=== PATIENT | female | born 1990 | race Caucasian/White ===

== ENCOUNTER 2018-08-26 18:12 | Emergency (ER) | payer SELFPAY ==
--- NOTE | 2018-08-26 18:24 | EDM.PDOC ---
ED HPI GENERAL MEDICAL PROBLEM - General Chief Complaint: ENT Problem Stated Complaint: PT HAS SORE THROAT Time Seen by Provider: 08/26/18 18:19 Source of Information: Reports: Patient History Limitations: Reports: No Limitations - History of Present Illness INITIAL COMMENTS - FREE TEXT/NARRATIVE: HISTORY AND PHYSICAL: History of present illness: Patient is a 28-year-old female who presents today for sore throat which started on . Patient states that she seen in the clinic yesterday and put on Clindamycin for strep throat, has taken 5 doses so far. Reports her symptoms have gotten worse since last night and states she is unable to eat but able to drink water throughout the day. She states that she's been having fevers at home 102F she has been taking Tylenol for her fever. Patient also reports a generalized headache. Patient denies any change in vision, syncope or near syncope. Denies any chest pain, back pain, shortness of breath or cough. Denies any abdominal pain, nausea, vomiting, diarrhea, constipation or dysuria. Has not noted any blood in urine or stool. Review of systems: As per history of present illness and below otherwise all systems reviewed and negative. Past medical history: As per history of present illness and as reviewed below otherwise noncontributory. Surgical history: As per history of present illness and as reviewed below otherwise noncontributory. Social history: See social history for further information Family history: As per history of present illness and as reviewed below otherwise noncontributory. Physical exam: General: Well-developed and well nourished 28-year-old female. Alert and oriented. Nontoxic appearing and in no acute distress. HEENT: Atraumatic, normocephalic, pupils equal and reactive bilaterally, negative for conjunctival pallor or scleral icterus, mucous membranes moist, TMs normal bilaterally, bilateral tonsils are erythematous with exudate, no drainage noted. Right tonsil is +4 swelling. The left tonsil is +2. Uvula midline. Neck supple, nontender, trachea midline. No drooling or trismus noted. No meningeal signs. No hot potato voice noted. Lungs: Clear to auscultation, breath sounds equal bilaterally, chest nontender. Heart: S1S2, regular rate and rhythm without overt murmur Abdomen: Soft, nondistended, nontender. Skin: Intact, warm, dry. No lesions or rashes noted. Extremities: Atraumatic, moves all extremities per self without difficulty or deficits, negative for cords or calf pain. Neurovascular unremarkable. Neuro: Awake, alert, oriented. Cranial nerves II through XII unremarkable. Cerebellum unremarkable. Motor and sensory unremarkable throughout. Exam nonfocal. Notes: Patient did not find relief with the Toradol, additional pain medication given. CT shows bilateral tonsillar pillar hypertrophy with bilateral cervical adenopathy, right greater than left, with concern for small right peritonsillar abscess. Patient does have a white count of 18. Rocephin was given while here along with Solu-Medrol IV. Currently we do not have any ENT specialist available at our facility. [facility] currently has no specialist available. Dr Bob, ENT at [facility] was consulted on this patient. He is agreeable that this patient needs further evaluation and possible I&D. Patient is stable and able to be transferred via private vehicle area did talk to the ER physician about her coming to the emergency room. Vital signs are stable temperature/pulse has gone down. He is aware and agreeable to seeing this patient as well. All findings and transfer instructions were reviewed with the patient and at bedside. She voices understanding and is agreeable to plan of care. Denies any further questions or concerns at this time. Diagnostics: CBC, CMP, HCG, CT soft tissue neck Therapeutics: IV fluids, Toradol, Tylenol, Solumedrol, Morphine, Rocephin Prescription: None Impression: Strep Throat Peritonsillar abscess, right Plan: 1. To [facility] via private vehicle (Go to [place] ER) 2. Do not eat or drink anything until cleared by the [place] ED provider 3. If any problems arise between here and [place], please go directly to the emergency room. Definitive disposition and diagnosis as appropriate pending reevaluation and review of above. Throat Pain Score (Numeric/FACES): 10 - Related Data Allergies Allergy/AdvReac Type Severity Reaction Status Date / Time amoxicillin Allergy Hives Verified 01/06/18 11:10 animal dander Allergy reddness/it Verified 01/06/18 11:10 efraín mold Allergy Hives Verified 01/06/18 11:10 Home Meds: Home Meds Clindamycin HCl 300 mg PO TID 08/26/18 [History] Past Medical History HEENT History: Reports: None Cardiovascular History: Reports: None Respiratory History: Reports: None Gastrointestinal History: Reports: Other (See Below) Other Gastrointestinal History: occasional heartburn with Genitourinary History: Reports: None 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: Musculoskeletal History: Reports: None Neurological History: Reports: None Psychiatric History: Reports: None Endocrine/Metabolic History: Reports: None Hematologic History: Reports: None Immunologic History: Reports: None Oncologic (Cancer) History: Reports: None Dermatologic History: Reports: None - Infectious Disease History Infectious Disease History: Reports: Chicken Pox - Past Surgical History Head Surgeries/Procedures: Reports: None HEENT Surgical History: Reports: Oral Surgery, Other (See Below) Other HEENT Surgeries/Procedures: [place] tooth extraction Respiratory Surgical History: Reports: None GI Surgical History: Reports: None Female Surgical History: Reports: None Endocrine Surgical History: Reports: None Neurological Surgical History: Reports: None Musculoskeletal Surgical History: Reports: None Dermatological Surgical History: Reports: None Social & Family History - Family History HEENT: Reports: None Cardiac: Reports: High Cholesterol, Hypertension Respiratory: Reports: None GI: Reports: None : Reports: None OBGYN: Reports: Other (See Below) Other OBGYN Family History: Mom had a Musculoskeletal: Reports: None Neurological: Reports: None Psychiatric: Reports: None Endocrine/Metabolic: Reports: Diabetes, type II Hematologic: Reports: None Immunologic: Reports: None Dermatologic: Reports: None Oncologic: Reports: None - Caffeine Use Caffeine Use: Reports: Coffee, Energy Drinks ED ROS ENT - Review of Systems Review Of Systems: ROS reveals no pertinent complaints other than HPI. ED EXAM, ENT - Physical Exam Exam: See Below (See dictation) Course - Vital Signs Last Recorded V/S: Last Vital Signs Temp 99.5 F 08/26/18 19:18 Pulse 95 08/26/18 19:18 Resp 18 08/26/18 19:18 BP 113/66 08/26/18 19:18 Pulse Ox 96 08/26/18 19:18 - Orders/Labs/Meds Labs: Laboratory Tests 08/26/18 08/26/18 08/26/18 Range/Units 18:33 18:33 18:33 WBC 18.05 H (4.0-11.0) K/uL RBC 4.36 (4.30-5.90) M/uL Hgb 12.9 (12.0-16.0) g/dL Hct 38.7 (36.0-46.0) % MCV 88.8 (80.0-98.0) fL MCH 29.6 (27.0-32.0) pg MCHC 33.3 (31.0-37.0) g/dL RDW Std Deviation 41.0 (28.0-62.0) fl RDW Coeff of Ignacio 13 (11.0-15.0) % Plt Count 240 (150-400) K/uL MPV 10.40 (7.40-12.00) fL Neut % (Auto) 83.9 H (48.0-80.0) % Lymph % (Auto) 8.9 L (16.0-40.0) % [place] % (Auto) 6.9 (0.0-15.0) % Eos % (Auto) 0.1 (0.0-7.0) % Baso % (Auto) 0.2 (0.0-1.5) % Neut # (Auto) 15.2 H (1.4-5.7) K/uL Lymph # (Auto) 1.6 (0.6-2.4) K/uL [place] # (Auto) 1.3 H (0.0-0.8) K/uL Eos # (Auto) 0.0 (0.0-0.7) K/uL Baso # (Auto) 0.0 (0.0-0.1) K/uL Nucleated RBC % 0.0 /100WBC Nucleated RBCs # 0 K/uL Sodium 137 (136-145) mmol/L Potassium 3.7 (3.5-5.1) mmol/L Chloride 101 (98-107) mmol/L Carbon Dioxide 24.6 (21.0-32.0) mmol/L BUN 9 (7.0-18.0) mg/dL Creatinine 0.7 (0.6-1.0) mg/dL Est Cr Clr Drug Dosing 116.35 mL/min Estimated GFR (MDRD) > 60.0 ml/min Glucose 103 (74-106) mg/dL Calcium 8.8 (8.5-10.1) mg/dL Total Bilirubin 0.5 (0.2-1.0) mg/dL AST 21 (15-37) IU/L ALT 30 (14-63) IU/L Alkaline Phosphatase 86 (46-116) U/L Total Protein 8.1 (6.4-8.2) g/dL Albumin 3.8 (3.4-5.0) g/dL Globulin 4.3 H (2.6-4.0) g/dL Albumin/Globulin Ratio 0.9 (0.9-1.6) HCG, Qual NEGATIVE (NEG) Meds: Medications Discontinued Medications Generic Name Dose Route Start Last Admin Trade Name Freq PRN Reason Stop Dose Admin Acetaminophen 1,000 mg 08/26/18 18:27 08/26/18 18:36 Tylenol Extra Strength PO 08/26/18 18:28 1,000 mg ONETIME ONE Administration Sodium Chloride 1,000 mls @ 999 mls/hr 08/26/18 18:27 08/26/18 18:36 Normal Saline IV 08/26/18 19:27 999 mls/hr STAT ONE Administration Ceftriaxone Sodium/Dextrose 1 50 mls @ 100 mls/hr 08/26/18 19:03 08/26/18 19: 16 gm/ Premix IV 08/26/18 19:32 100 mls/hr ONETIME ONE Administration Iopamidol 80 ml 08/26/18 19:19 08/26/18 19:21 Isovue Multipack-370 (76%) IVPUSH 08/26/18 19:20 80 ml ONETIME STA Administration Ketorolac Tromethamine 30 mg 08/26/18 18:27 08/26/18 18:36 Toradol IVPUSH 08/26/18 18:28 30 mg ONETIME ONE Administration Methylprednisolone Sodium Succinate 125 mg 08/26/18 18:56 08/26/18 19:14 Solu-Medrol IVPUSH 08/26/18 18:57 125 mg ONETIME ONE Administration Morphine Sulfate 2 mg 08/26/18 18:56 08/26/18 19:13 Morphine IVPUSH 08/26/18 18:57 2 mg ONETIME ONE Administration Departure - Departure Time of Disposition: 20:34 Disposition: Home, Self-Care 01 Clinical Impression: Peritonsillar abscess, Strep throat - Discharge Information Referrals: PCP,None [Primary Care Provider] - Forms: ED Department Discharge Additional Instructions: The following information is given to patients seen in the emergency department who are being discharged to home. This information is to outline your options for follow-up care. We provide all patients seen in our emergency department with a follow-up referral. The need for follow-up, as well as the timing and circumstances, are variable depending upon the specifics of your emergency department visit. If you don't have a primary care physician on staff, we will provide you with a referral. We always advise you to contact your personal physician following an emergency department visit to inform them of the circumstance of the visit and for follow-up with them and/or the need for any referrals to a consulting specialist. The emergency department will also refer you to a specialist when appropriate. This referral assures that you have the opportunity for follow-up care with a specialist. All of these measure are taken in an effort to provide you with optimal care, which includes your follow-up. Under all circumstances we always encourage you to contact your private physician who remains a resource for coordinating your care. When calling for follow-up care, please make the office aware that this follow-up is from your recent emergency room visit. If for any reason you are refused follow-up, please contact the [facility] Emergency Department at and asked to speak to the emergency department charge nurse. [place] [id number] [address] [facility] [address] 1. To [place] in [place] via private vehicle (Go to [place] ER) 2. Do not eat or drink anything until cleared by the [place] ED provider 3. If any problems arise between here and [place], please go directly to the emergency room.
[2018-08-26] MEDS ORDERED: Sodium Chloride 0.9% 1,000 ML IV ONE (18:27)
[2018-08-26] MEDS ORDERED: Ketorolac 30 MG/ML SDV IVPUSH ONE (18:27)
[2018-08-26] MEDS ORDERED: Acetaminophen 500 MG Tab PO ONE (18:27)
[2018-08-26] MEDS ORDERED: Morphine 2 MG/ML Syringe IVPUSH ONE ×2 (18:56→20:37)
[2018-08-26] MEDS ORDERED: methylPREDNISolone Sodium Succinate 125 MG/2 ML SDV IVPUSH ONE (18:56)
[2018-08-26 19:01] LABS: CHLORIDE,CL 101 mmol/L (98-107); SODIUM,NA 137 mmol/L (136-145)
[2018-08-26] MEDS ORDERED: cefTRIAXone 1 GM in Premix Bag 1 BAG IV ONE (19:03)
[2018-08-26] MEDS ORDERED: Iopamidol 755 MG/ML 500 ML Multipack Bottle IVPUSH STA (19:19)
--- NOTE | 2018-08-26 20:14 | CT ---
Indication: Right-sided neck pain Technique: Routine post-contrast CT neck Please note that all CT scans at this facility use dose modulation, iterative reconstruction, and/or weight-based dosing when appropriate to reduce radiation dose to as low as reasonably achievable. Comparison: No comparison Findings: Hypertrophy of the tonsillar pillars noted bilaterally, right greater than left. Foci of increased density located within the left tonsillar pillar and there are areas of heterogeneity within the right tonsillar pillar, suggesting small abscesses. Narrowing of the airway noted. Bilateral cervical adenopathy, right greater than left with cervical lymph nodes measuring up to 18 millimeters on the right. Salivary glands normal. Thyroid unremarkable. Normal lung apices. Normal osseous structures. Visualized brain parenchyma within normal limits. Normal visualized sinuses. Visualized orbits are normal. Impression: Bilateral tonsillar pillar hypertrophy with bilateral cervical adenopathy, right greater than left, with concern for small right peritonsillar abscesses. Direct visualization recommended. Please note that all CT scans at this facility use dose modulation, iterative reconstruction, and/or weight-based dosing when appropriate to reduce radiation dose to as low as reasonably achievable. Dictated by Roosevelt Powers MD @ Aug 26 2018 8:08PM Signed by Dr. Roosevelt Powers @ Aug 26 2018 8:11PM
== END 2018-08-26 20:55 ==
LOC: MW.ED 18:12
DX: J36 Peritonsillar abscess (principal)
CPT/HCPCS: 36415; 70491; 80053; 84703; 85025; 87880; 96361; 96365; 96375; 96376; 99284; A4217; A9270; J0696; J1885; J2270; J2930; J7040; Q9967

== ENCOUNTER 2019-06-28 05:16 | Inpatient (IN) | payer BC ==
[2019-06-28] MEDS ORDERED: Citric Acid/Sodium Citrate Solution 30 ML Cup PO ONE (05:34)
[2019-06-28] MEDS ORDERED: Sodium Chloride 0.9% 10 ML SDV IV PRN (05:34)
[2019-06-28] MEDS ORDERED: Sodium Chloride 0.9% 2.5 ML Syringe FLUSH PRN (05:34)
[2019-06-28] MEDS ORDERED: Sodium Chloride 0.9% 10 ML Syringe FLUSH PRN (05:34)
[2019-06-28] MEDS ORDERED: Oxytocin/0.9 % Sodium Chloride 30 UNIT/500 ML BAG IV SCH (05:45)
[2019-06-28] MEDS: Lactated Ringers 1,000 ML IV SCH ×2 (06:24→06:58)
[2019-06-28] MEDS ORDERED: fentaNYL 100 MCG/2 ML SDV IVPUSH PRN (07:20)
[2019-06-28] MEDS ORDERED: Nalbuphine 10 MG/1 ML Vial IVPUSH PRN (07:20)
--- NOTE | 2019-06-28 07:20 | PCM.PREANE ---
Preanesthetic Assessment - Anesthesia/Transfusion/Family Hx Anesthesia History: Prior Anesthesia Without Reaction Other Type of Anesthesia Reaction Comment: "mother has issues with N/V post op" Family History of Anesthesia Reaction: No Transfusion History: No Prior Transfusion(s) Type of Transfusion Reactions: Reports: Unknown - Review of Systems General: No Symptoms Pulmonary: No Symptoms Cardiovascular: No Symptoms Gastrointestinal: No Symptoms Neurological: No Symptoms Other: Reports: None - Physical Assessment NPO Status Date: 06/27/19 Height: 5 ft 6 in Weight: 102.965 kg ASA Class: 1 Mental Status: Alert & Oriented x3 Airway Class: Mallampati = 1 Dentition: Reports: Normal Dentition ROM/Head Extension: Full Lungs: Clear to Auscultation, Normal Respiratory Effort Cardiovascular: Regular Rate, Regular Rhythm - Lab Values: Laboratory Last Values WBC 9.30 K/uL (4.0-11.0) 06/28/19 06:20 RBC 3.35 M/uL (4.30-5.90) L 06/28/19 06:20 Hgb 10.0 g/dL (12.0-16.0) L 06/28/19 06:20 Hct 30.0 % (36.0-46.0) L 06/28/19 06:20 MCV 89.6 fL (80.0-98.0) 06/28/19 06:20 MCH 29.9 pg (27.0-32.0) 06/28/19 06:20 MCHC 33.3 g/dL (31.0-37.0) 06/28/19 06:20 RDW Std Deviation 45.8 fl (28.0-62.0) 06/28/19 06:20 RDW Coeff of Ignacio 14 % (11.0-15.0) 06/28/19 06:20 Plt Count 187 K/uL (150-400) 06/28/19 06:20 MPV 10.60 fL (7.40-12.00) 06/28/19 06:20 Nucleated RBC % 0.0 /100WBC 06/28/19 06:20 Nucleated RBCs # 0 K/uL 06/28/19 06:20 Blood Type O POSITIVE 06/28/19 06:20 Antibody Screen NEGATIVE 06/28/19 06:20 - Allergies Allergies/Adverse Reactions: Allergies Allergy/AdvReac Type Severity Reaction Status Date / Time amoxicillin Allergy Hives Verified 06/25/19 11:10 animal dander Allergy reddness/it Verified 01/06/18 11:10 efraín mold Allergy Hives Verified 01/06/18 11:10 - Anesthesia Plan Pre-Op Medication Ordered: Antacids - Acknowledgements Anesthesia Type Planned: Spinal Pt an Appropriate Candidate for the Planned Anesthesia: Yes Alternatives and Risks of Anesthesia Discussed w Pt/Guardian: Yes Pt/Guardian Understands and Agrees with Anesthesia Plan: Yes Additional Comments: repeat elective c section PLAN: spinal with duramorph PreAnesthesia Questionnaire HEENT History: Reports: None Cardiovascular History: Reports: None Other Cardiovascular History: heart murmur as a child- but it "resolved" Respiratory History: Reports: None Gastrointestinal History: Reports: Other (See Below) Other Gastrointestinal History: occasional heartburn with Genitourinary History: Reports: None 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: Musculoskeletal History: Reports: None Neurological History: Reports: None Psychiatric History: Reports: None Other Psychiatric History: no medications Endocrine/Metabolic History: Reports: None Hematologic History: Reports: None Immunologic History: Reports: None Oncologic (Cancer) History: Reports: None Dermatologic History: Reports: None - Infectious Disease History Infectious Disease History: Reports: Chicken Pox - Past Surgical History Head Surgeries/Procedures: Reports: None HEENT Surgical History: Reports: Oral Surgery, Other (See Below) Other HEENT Surgeries/Procedures: [place] tooth extraction Female Surgical History: Reports: None Dermatological Surgical History: Reports: None - SUBSTANCE USE Smoking Status *Q: Former Smoker Tobacco Use Within Last Twelve Months: Cigarettes Second Hand Smoke Exposure: No Recreational Drug Use History: No - HOME MEDS Home Medications: Home Meds No122/Iron/Folic Acid [ Multi Tablet] 1 tab PO DAILY 06/25/19 [ History] - CURRENT (IN HOUSE) MEDS Current Meds: Current Medications Lactated Ringer's (Ringers, Lactated) 1,000 mls @ 500 mls/hr IV BOLUS YONIS Last Admin: 06/28/19 06:58 Dose: 500 mls/hr Oxytocin/Sodium Chloride (Oxytocin 30 Unit/500 Ml-Ns) 30 unit in 500 mls @ 250 mls/hr IV TITRATE YONIS Sodium Chloride (Saline Flush) 10 ml FLUSH ASDIRECTED PRN PRN Reason: Keep Vein Open Sodium Chloride (Saline Flush) 2.5 ml FLUSH ASDIRECTED PRN PRN Reason: Keep Vein Open Sodium Chloride (Normal Saline) 10 ml IV ASDIRECTED PRN PRN Reason: IV Use Discontinued Medications Citric Acid/Sodium Citrate (Bicitra Solution) 30 ml PO ONETIME ONE Stop: 06/28/19 05:35
[2019-06-28] MEDS ORDERED: Sodium Chloride 0.9% 20 ML ONE ×2 (07:22→08:00)
[2019-06-28] MEDS ORDERED: ePHEDrine 50 MG/ML SDV ONE (07:22)
[2019-06-28] MEDS ORDERED: Ondansetron 4 MG/2 ML SDV ONE (07:23)
[2019-06-28] MEDS ORDERED: Morphine PF 10 MG/10 ML SDV ONE (07:23)
[2019-06-28] MEDS ORDERED: ceFAZolin 2 GM in Premix Bag 1 BAG IV ONE (07:37)
[2019-06-28] MEDS ORDERED: ceFAZolin 1 GM Vial ONE (08:00)
--- NOTE | 2019-06-28 08:32 | PCM.LDHP ---
L&D History of Present Illness - General Date of Service: 06/28/19 Admit Problem/Dx: Patient Status Order with Admit Dx/Problem 06/28/19 05:35 Patient Status [ADT] Routine Admission Diagnosis/Problem Admission Diagnosis/Problem - planned Source of Information: Patient History Limitations: Reports: No Limitations - History of Present Illness Improves with: Reports: None Worsens with: Reports: None Associated Symptoms: Reports: N - Related Data Allergies/Adverse Reactions: Allergies Allergy/AdvReac Type Severity Reaction Status Date / Time amoxicillin Allergy Hives Verified 06/25/19 11:10 animal dander Allergy reddness/it Verified 01/06/18 11:10 efraín mold Allergy Hives Verified 01/06/18 11:10 Home Medications: Home Meds No122/Iron/Folic Acid [ Multi Tablet] 1 tab PO DAILY 06/25/19 [ History] Past Medical History HEENT History: Reports: None Cardiovascular History: Reports: None Other Cardiovascular History: heart murmur as a child- but it "resolved" Respiratory History: Reports: None Gastrointestinal History: Reports: Other (See Below) Other Gastrointestinal History: occasional heartburn with Genitourinary History: Reports: None 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: Musculoskeletal History: Reports: None Neurological History: Reports: None Psychiatric History: Reports: None Other Psychiatric History: no medications Endocrine/Metabolic History: Reports: None Hematologic History: Reports: None Immunologic History: Reports: None Oncologic (Cancer) History: Reports: None Dermatologic History: Reports: None - Infectious Disease History Infectious Disease History: Reports: Chicken Pox - Past Surgical History Head Surgeries/Procedures: Reports: None HEENT Surgical History: Reports: Oral Surgery, Other (See Below) Other HEENT Surgeries/Procedures: [place] tooth extraction Female Surgical History: Reports: None Dermatological Surgical History: Reports: None Social & Family History - Family History HEENT: Reports: None Cardiac: Reports: High Cholesterol, Hypertension Respiratory: Reports: None GI: Reports: None : Reports: None OBGYN: Reports: Other (See Below) Other OBGYN Family History: Mom had a Musculoskeletal: Reports: None Neurological: Reports: None Psychiatric: Reports: None Endocrine/Metabolic: Reports: Diabetes, type II Hematologic: Reports: None Immunologic: Reports: None Dermatologic: Reports: None Oncologic: Reports: None - Tobacco Use Smoking Status *Q: Former Smoker Years of Tobacco use: 4 Packs/Tins Daily: 0.4 Used Tobacco, but Quit: No Tobacco Use Comment: quit 4 years ago Second Hand Smoke Exposure: No - Caffeine Use Caffeine Use: Reports: Coffee, Energy Drinks, Tea - Recreational Drug Use Recreational Drug Use: No Drug Use in Last 12 Months: No H&P Review of Systems - Review of Systems: Review Of Systems: See Below General: Reports: No Symptoms HEENT: Reports: No Symptoms Pulmonary: Reports: No Symptoms Cardiovascular: Reports: No Symptoms Gastrointestinal: Reports: No Symptoms Genitourinary: Reports: No Symptoms Musculoskeletal: Reports: No Symptoms Skin: Reports: No Symptoms Psychiatric: Reports: No Symptoms Neurological: Reports: No Symptoms Hematologic/Lymphatic: Reports: No Symptoms Immunologic: Reports: No Symptoms L&D Exam - Exam Exam: See Below - Vital Signs Weight: 102.965 kg - OB Specific Contraction Intensity: Mild Presentation: Vertex - Exam General: Alert, Oriented HEENT: PERRLA, Conjunctiva Clear, EACs Clear, EOMI, Hearing Intact, Mucosa Moist & Weaver, Nares Patent, Normal Nasal Septum, Posterior Pharynx Clear, TMs Clear Neck: Supple, Trachea Midline Lungs: Clear to Auscultation, Normal Respiratory Effort Cardiovascular: Regular Rate, Regular Rhythm GI/Abdominal Exam: Normal Bowel Sounds, Soft, Non-Tender, No Organomegaly, No Distention, No Abnormal Bruit, No Mass, Pelvis Stable Rectal Exam: Normal Exam, Normal Rectal Tone Genitourinary: Normal external exam, Normal bimanual exam, Normal speculum exam Back Exam: Normal Inspection, Full Range of Motion Extremities: Normal Inspection, Normal Range of Motion, Non-Tender, No Pedal Edema, Normal Capillary Refill Skin: Warm, Dry, Intact Neurological: Cranial Nerves Intact, Reflexes Equal Bilateral Psychiatric: Alert, Normal Affect, Normal Mood - Patient Data Lab Results Last 24 hrs: Laboratory Results - last 24 hr 06/28/19 06/28/19 Range/Units 06:20 06:20 WBC 9.30 (4.0-11.0) K/uL RBC 3.35 L (4.30-5.90) M/uL Hgb 10.0 L (12.0-16.0) g/dL Hct 30.0 L (36.0-46.0) % MCV 89.6 (80.0-98.0) fL MCH 29.9 (27.0-32.0) pg MCHC 33.3 (31.0-37.0) g/dL RDW Std Deviation 45.8 (28.0-62.0) fl RDW Coeff of Ignacio 14 (11.0-15.0) % Plt Count 187 (150-400) K/uL MPV 10.60 (7.40-12.00) fL Nucleated RBC % 0.0 /100WBC Nucleated RBCs # 0 K/uL Blood Type O POSITIVE Antibody Screen NEGATIVE Result Diagrams: 06/28/19 06:20 Problem List Initiated/Reviewed/Updated: Yes Orders Last 24hrs: Active Orders 24 hr Category Date Time Status Patient Status [ADT] Routine ADT 06/28/19 05:35 Active Bradycardia-Neuroaxis [employer] [RC] ROUTINE Care 06/28/19 07:20 Active Non Stress Test [RC] PER UNIT ROUTINE Care 06/28/19 05:35 Active Hypertension-Neuroaxis [employer] [RC] ROUTINE Care 06/28/19 07:20 Active Hypotension-Neuroaxis [employer] [RC] ROUTINE Care 06/28/19 07:20 Active Notify Provider Vital Signs [RC] PRN Care 06/28/19 05:37 Active Oxygen Therapy [RC] PER UNIT ROUTINE Care 06/28/19 07:21 Active Procedure Site Prep Instruct [RC] ASDIRECTED Care 06/28/19 05:35 Active Up ad Vilma [RC] ASDIRECTED Care 06/28/19 05:35 Active Verify Patient Consent Obtain [RC] ASDIRECTED Care 06/28/19 05:35 Active Vital Signs [RC] PER UNIT ROUTINE Care 06/28/19 05:35 Active Vital Signs [RC] Q1H Care 06/28/19 07:21 Active RPR (SYPHILIS SERO) W/ RFLX [REF] Routine Lab 06/28/19 06:20 Received Lactated Ringers [Ringers, Lactated] 1,000 ml Med 06/28/19 05:45 Active IV BOLUS Nalbuphine [Nubain] Med 06/28/19 07:20 Active 2.5 mg IVPUSH Q3H PRN Oxytocin/0.9 % Sodium Chloride [Oxytocin 30 Unit/500 ML Med 06/28/19 05:45 Active -NS] 30 unit in 500 ml IV TITRATE Sodium Chloride 0.9% [Normal Saline] Med 06/28/19 05:34 Active 10 ml IV ASDIRECTED PRN Sodium Chloride 0.9% [Saline Flush] Med 06/28/19 05:34 Active 10 ml FLUSH ASDIRECTED PRN Sodium Chloride 0.9% [Saline Flush] Med 06/28/19 05:34 Active 2.5 ml FLUSH ASDIRECTED PRN fentaNYL [Sublimaze] Med 06/28/19 07:20 Active 50 mcg IVPUSH Q5M PRN AN Neuroaxis [employer] Precaution Reflex [OM.PC] PER Oth 06/28/19 07:30 Ordered UNIT ROUTINE AN Neuroaxis [employer] Precaution Reflex [OM.PC] PER Oth 06/29/19 07:30 Ordered UNIT ROUTINE Peripheral IV Insertion Adult [OM.PC] Routine Oth 06/28/19 05:35 Ordered Schedule Procedure [COMM] Per Unit Routine Oth 06/28/19 05:35 Ordered Resuscitation Status Routine Resus Stat 06/28/19 05:34 Ordered Medication Orders Fentanyl (Sublimaze) 50 mcg IVPUSH Q5M PRN PRN Reason: Pain (severe 7-10) Stop: 06/29/19 07:21 Lactated Ringer's (Ringers, Lactated) 1,000 mls @ 500 mls/hr IV BOLUS YONIS Last Admin: 06/28/19 06:58 Dose: 500 mls/hr Infusion: 06/28/19 06:58 Dose: 500 mls/hr Admin: 06/28/19 06:24 Dose: 500 mls/hr Oxytocin/Sodium Chloride (Oxytocin 30 Unit/500 Ml-Ns) 30 unit in 500 mls @ 250 mls/hr IV TITRATE YONIS Nalbuphine HCl (Nubain) 2.5 mg IVPUSH Q3H PRN PRN Reason: Pruritis Stop: 06/29/19 07:21 Sodium Chloride (Saline Flush) 10 ml FLUSH ASDIRECTED PRN PRN Reason: Keep Vein Open Sodium Chloride (Saline Flush) 2.5 ml FLUSH ASDIRECTED PRN PRN Reason: Keep Vein Open Sodium Chloride (Normal Saline) 10 ml IV ASDIRECTED PRN PRN Reason: IV Use Assessment/Plan Comment:: IUP39+wks admitted for elective repeat C/section.
[2019-06-28] MEDS ORDERED: Ondansetron 4 MG/2 ML SDV IVPUSH PRN (08:34)
[2019-06-28] MEDS ORDERED: Methylergonovine 0.2 MG/1 ML Amp IM PRN (08:34)
[2019-06-28] MEDS ORDERED: Oxytocin 10 Units/1 ML SDV IM PRN (08:34)
[2019-06-28] MEDS ORDERED: Bisacodyl 10 MG Supp RECTAL PRN (08:34)
[2019-06-28] MEDS ORDERED: Ibuprofen 800 MG Tab PO PRN (08:34)
[2019-06-28] MEDS ORDERED: Misoprostol 200 MCG Tab RECTAL PRN (08:34)
[2019-06-28] MEDS ORDERED: Acetaminophen/oxyCODONE 325-5 MG Tab PO PRN ×2 (08:34)
[2019-06-28] MEDS ORDERED: Lanolin 100% Cream 7 GM Tube TOP PRN (08:34)
[2019-06-28] MEDS ORDERED: diphenhydrAMINE 50 MG/ML SDV IVPUSH PRN (08:34)
[2019-06-28] MEDS ORDERED: Tranexamic Acid 1,000 MG in Sodium Chloride 0.9% 100 ML IV PRN (08:34)
--- NOTE | 2019-06-28 08:34 | PCM.OPNOTE ---
- General Post-Op/Procedure Note Date of Surgery/Procedure: 06/28/19 Operative Procedure(s): repeat C/section. Pre Op Diagnosis: IUP39+wks previous C/section. Post-Op Diagnosis: Same Anesthesia Technique: Spinal Primary Surgeon: Braxton Levy Public Information Relations Manager: Eliana Tavares EBL in mLs: 700 Complications: None Condition: Good
[2019-06-28] MEDS ORDERED: Lactated Ringers 1,000 ML IV SCH (08:45)
[2019-06-28] MEDS: Ketorolac 30 MG/ML SDV IVPUSH SCH ×3 (09:15→20:32)
--- NOTE | 2019-06-28 10:18 | PCM.POSTAN ---
POST ANESTHESIA ASSESSMENT - MENTAL STATUS Mental Status: Alert, Oriented - VITAL SIGNS Vital Signs: Last Vital Signs Temp 97.2 F 06/28/19 08:41 Pulse 78 06/28/19 09:30 Resp 17 06/28/19 09:30 BP 113/71 06/28/19 09:30 Pulse Ox 98 06/28/19 09:30 - RESPIRATORY Respiratory Status: Respiratory Rate WNL, Airway Patent, O2 Saturation Stable - CARDIOVASCULAR CV Status: Pulse Rate WNL, Blood Pressure Stable - GASTROINTESTINAL GI Status: No Symptoms - POST OP HYDRATION Hydration Status: Adequate & Stable
--- NOTE | 2019-06-28 13:19 | OR ---
SURGEON: Braxton Levy MD DATE OF PROCEDURE: 06/28/2019 PREOPERATIVE DIAGNOSES: Intrauterine 39+ weeks, previous section, admitted for elective repeat. POSTOPERATIVE DIAGNOSES: Intrauterine 39+ weeks, previous section, admitted for elective repeat. OPERATION PERFORMED: Repeat low-transverse section. PUMPER GAUGER: Eliana Tavares, certified nurse network architect manager. ANESTHESIA: Spinal, Manuel Maldonado and Dr. Waters. ESTIMATED BLOOD LOSS: 700 mL. COMPLICATIONS: None. FINDING: Male fetus. score reported to be 9 and 9 and weight 8 pounds 4 ounces. INDICATION FOR SURGERY: This patient is 29. She had two previous section. She is admitted for elective repeat section in this . She had no complication and her GBS cultures was negative. PROCEDURE IN DETAIL: The patient was brought to the OR, properly identified, and after adequate level of spinal anesthesia with a Solano catheter in the bladder, the patient prepped and draped in sterile fashion done in the usual manner. Time-out taken to identify the patient, and once that was done, a low transverse Pfannenstiel skin incision through the old scar was done. The Ezio's fascia and rectus fascia were opened in the direction of the incision. Two recti muscles were and peritoneal cavity was entered. A low transverse uterine incision was done and extended manually and fetus was in a vertex position, delivered immediately without any problem. score reported to be 9 and 9 and weight 8 pounds and 4 ounces. Placenta delivered spontaneous, complete, and intact and then repair of the lower uterine segment done with 2-0 Vicryl continuous interlocking in 2 layers. Reperitonealization done with 3-0 Vicryl continuous and then the peritoneal cavity evacuated completely from all blood and blood clot and closed with 3-0 Vicryl continuous. The rectus fascia was closed with #1 PDS double strand, Ezio's fascia with 3-0 Vicryl continuous and the skin closed with 3-0 in a subcuticular fashion and Dermabond. Instrument and sponge count was correct. The patient tolerated the procedure well, went to recovery room in stable general condition. ANTON / KYLE /[id number]
[2019-06-28] MEDS: Docusate Sodium 100 MG Cap PO SCH (20:32)
[2019-06-29] MEDS: Ketorolac 30 MG/ML SDV IVPUSH SCH ×2 (02:16→08:39)
--- NOTE | 2019-06-29 06:31 | PCM48HPAN ---
Post Anesthesia Note - EVALUATION WITHIN 48HRS OF ANESTHETIC Vital Signs in Normal Range: Yes Patient Participated in Evaluation: Yes Respiratory Function Stable: Yes Airway Patent: Yes Cardiovascular Function Stable: Yes Hydration Status Stable: Yes Pain Control Satisfactory: Yes (no pain) Nausea and Vomiting Control Satisfactory: Yes Mental Status Recovered: Yes Vital Signs: Last Vital Signs Temp 36.4 C 06/29/19 04:00 Pulse 95 06/29/19 06:00 Resp 17 06/29/19 06:00 BP 105/61 06/29/19 04:00 Pulse Ox 95 06/29/19 06:00
--- NOTE | 2019-06-29 08:10 | PCM.DCSUM1 ---
Discharge Summary - Hospital Course Free Text/Narrative:: Discharge today due to infant transferred to [place] due to Pneumothorax. Follow up in 1 week in person or via Telemed for post op visit and 6 weeks for . Diagnosis: Stroke: No Modified Shelby Scale: No Symptoms at All Modified Naty Scale Score: 0 - Discharge Data Discharge Date: 06/29/19 Discharge Disposition: Home, Self-Care 01 Condition: Good - Referral to Home Health Primary Care Physician: PCP None - Discharge Diagnosis/Problem(s) (1) Status post repeat low transverse section SNOMED Code(s): 173557401, [id number], [id number], [id number], [id number] ICD Code: Z98.891 - HISTORY OF UTERINE SCAR FROM PREVIOUS SURGERY Status: Acute Priority: High Current Visit: Yes - Patient Summary/Data Operative Procedure(s) Performed: repeat C/section. - Patient Instructions Diet: Usual Diet as Tolerated Activity: As Tolerated, No Strenuous Activities, Rest and Relax Today Driving: Do Not Drive Showering/Bathing: May Shower Wound/Incision Care: Keep Operative Site/Wound Site Clean and Dry Notify Provider of: Fever, Increased Pain, Swelling and Redness, Nausea and/or Vomiting Other/Special Instructions: Discharge today due to transferred to [place] due to Pneumothorax. Follow up in 1 week in person or via Telemed for post op visit and 6 weeks for . - Discharge Plan *PRESCRIPTION DRUG MONITORING PROGRAM REVIEWED*: Not Applicable *COPY OF PRESCRIPTION DRUG MONITORING REPORT IN PATIENT NAVA: Not Applicable Prescriptions/Med Rec: Acetaminophen/oxyCODONE [Percocet 325-5 MG] 1 - 2 tab PO Q6HR PRN #30 tablet PRN Reason: Pain (Moderate 4-6) Ibuprofen [Motrin] 800 mg PO Q8H PRN #90 tablet PRN Reason: mild pain or fever Home Medications: Home Meds No122/Iron/Folic Acid [ Multi Tablet] 1 tab PO DAILY 06/25/19 [ History] Acetaminophen/oxyCODONE [Percocet 325-5 MG] 1 - 2 tab PO Q6HR PRN #30 tablet 03/19 [Rx] Ibuprofen [Motrin] 800 mg PO Q8H PRN #90 tablet 06/29/19 [Rx] Oxygen Therapy Mode: Room Air Referrals: [facility] [Outside] Braxton Levy MD [Physician] - (1 week- July 05@ 1:30pm w/ Dr. Levy week- August 09@ 3:00pm w/ Dr. Levy ) - Discharge Summary/Plan Comment DC Time >30 min.: Yes - General Info Date of Service: 06/29/19 Admission Dx/Problem (Free Text: Patient Status Order with Admit Dx/Problem 06/28/19 05:35 Patient Status [ADT] Routine Admission Diagnosis/Problem Admission Diagnosis/Problem - planned Functional Status: Reports: Pain Controlled, Tolerating Diet, Ambulating, Urinating - Review of Systems General: Reports: No Symptoms HEENT: Reports: No Symptoms Pulmonary: Reports: No Symptoms Cardiovascular: Reports: No Symptoms Gastrointestinal: Reports: No Symptoms Genitourinary: Reports: No Symptoms Musculoskeletal: Reports: No Symptoms Skin: Reports: No Symptoms Neurological: Reports: No Symptoms Psychiatric: Reports: No Symptoms - Patient Data Vitals - Most Recent: Last Vital Signs Temp 36.4 C 06/29/19 04:00 Pulse 94 06/29/19 07:00 Resp 17 06/29/19 07:00 BP 105/61 06/29/19 04:00 Pulse Ox 96 06/29/19 07:00 Weight - Most Recent: 102.965 kg I&O - Last 24 hours: Intake & Output 06/28/19 06/29/19 06/29/19 22:59 06:59 14:59 Intake Total 1000 Output Total 1700 875 Balance -700 -875 Lab Results - Last 24 hrs: Laboratory Results - last 24 hr 06/29/19 Range/Units 06:20 Hgb 8.8 L (12.0-16.0) g/dL Hct 27.2 L (36.0-46.0) % Med Orders - Current: Current Medications Bisacodyl (Dulcolax) 10 mg RECTAL ONETIME PRN PRN Reason: Constipation Diphenhydramine HCl (Benadryl) 25 mg IVPUSH Q6H PRN PRN Reason: Itching or Nausea Docusate Sodium (Colace) 100 mg PO BID YONIS Last Admin: 06/28/19 20:32 Dose: 100 mg Emollient Ointment (Lansinoh Hpa) 0 gm TOP ASDIRECTED PRN PRN Reason: Sore Nipples Lactated Ringer's (Ringers, Lactated) 1,000 mls @ 500 mls/hr IV BOLUS [facility] Last Admin: 06/28/19 06:58 Dose: 500 mls/hr Oxytocin/Sodium Chloride (Oxytocin 30 Unit/500 Ml-Ns) 30 unit in 500 mls @ 250 mls/hr IV TITRATE [facility] Tranexamic Acid 1,000 mg/ (Sodium Chloride) 110 mls @ 660 mls/hr IV ONETIME PRN PRN Reason: Bleeding Lactated Ringer's (Ringers, Lactated) 1,000 mls @ 125 mls/hr IV ASDIRECTED [facility] Ibuprofen (Motrin) 800 mg PO Q8H PRN PRN Reason: mild pain or fever Ketorolac Tromethamine (Toradol) 30 mg IVPUSH Q6H [facility] Stop: 06/29/19 08:46 Last Admin: 06/29/19 02:16 Dose: 30 mg Methylergonovine Maleate (Methergine) 0.2 mg IM ONETIME PRN PRN Reason: Excessive Vaginal Bleeding Misoprostol (Cytotec) 1,000 mcg RECTAL ONETIME PRN PRN Reason: excessive bleeding Ondansetron HCl (Zofran) 4 mg IVPUSH Q4H PRN PRN Reason: Nausea/Vomiting Last Admin: 06/28/19 08:15 Dose: 4 mg Oxycodone/Acetaminophen (Percocet 325-5 Mg) 1 tab PO Q4H PRN PRN Reason: Pain (moderate 4-6) Oxycodone/Acetaminophen (Percocet 325-5 Mg) 2 tab PO Q4H PRN PRN Reason: Pain (moderate 4-6) Oxytocin (Pitocin) 10 unit IM ASDIRECTED PRN PRN Reason: Excessive Vaginal Bleeding Sodium Chloride (Saline Flush) 10 ml FLUSH ASDIRECTED PRN PRN Reason: Keep Vein Open Sodium Chloride (Saline Flush) 2.5 ml FLUSH ASDIRECTED PRN PRN Reason: Keep Vein Open Sodium Chloride (Normal Saline) 10 ml IV ASDIRECTED PRN PRN Reason: IV Use Discontinued Medications Cefazolin Sodium (Ancef) Confirm Administered Dose 2 gm .ROUTE .STK-MED ONE Stop: 06/28/19 08:01 Citric Acid/Sodium Citrate (Bicitra Solution) 30 ml PO ONETIME ONE Stop: 06/28/19 05:35 Ephedrine Sulfate (Ephedrine Sulfate) Confirm Administered Dose 50 mg .ROUTE .STK-MED ONE Stop: 06/28/19 07:23 Fentanyl (Sublimaze) 50 mcg IVPUSH Q5M PRN PRN Reason: Pain (severe 7-10) Stop: 06/29/19 07:21 Sodium Chloride (Normal Saline) Confirm Administered Dose 20 mls @ as directed .ROUTE .STK-MED ONE Stop: 06/28/19 07:23 Cefazolin Sodium/Dextrose 2 gm (/ Premix) 50 mls @ 100 mls/hr IV ONETIME ONE Stop: 06/28/19 08:06 Sodium Chloride (Normal Saline) Confirm Administered Dose 20 mls @ as directed .ROUTE .STK-MED ONE Stop: 06/28/19 08:01 Morphine Sulfate (Duramorph Pf) Confirm Administered Dose 10 mg .ROUTE .STK-MED ONE Stop: 06/28/19 07:24 Nalbuphine HCl (Nubain) 2.5 mg IVPUSH Q3H PRN PRN Reason: Pruritis Stop: 06/29/19 07:21 Last Admin: 06/28/19 10:19 Dose: 2.5 mg Ondansetron HCl (Zofran) Confirm Administered Dose 4 mg .ROUTE .STK-MED ONE Stop: 06/28/19 07:24 - Exam General: Reports: Alert, Oriented, Cooperative, No Acute Distress Lungs: Reports: Normal Respiratory Effort GI/Abdominal Exam: Soft, Non-Tender, No Distention, Pelvis Stable (Female) Exam: Deferred, Vaginal Bleeding Rectal (Female) Exam: Deferred Back Exam: Reports: Normal Inspection, Full Range of Motion Extremities: Normal Inspection, Normal Range of Motion, Non-Tender, No Pedal Edema Skin: Reports: Warm, Dry, Intact Wound/Incisions: Reports: Healing Well, Dressing Dry and Intact, No Drainage. Denies: Erythema Neurological: Reports: No New Focal Deficit, Normal Speech, Normal Tone, Strength Equal Bilateral, Sensation Intact Psy/Mental Status: Reports: Alert, Normal Affect, Normal Mood
[2019-06-29] MEDS: Docusate Sodium 100 MG Cap PO SCH (08:39)
== END 2019-06-29 12:03 | disposition home or self-care (01) | DRG 540 ==
LOC: MW.OB 05:16
PROVIDERS: ADMIT Obstetrics & Gynecology; ATTEND Obstetrics & Gynecology
PROC: 10D00Z1 Extraction of Products of Conception, Low, Open Approach (ICD-10-PCS; principal; 2019-06-28)
DX: O34.211 Maternal care for low transverse scar from previous cesarean delivery (principal); Z3A.39 39 weeks gestation of pregnancy; Z37.0 Single live birth; Z87.891 Personal history of nicotine dependence
CPT/HCPCS: 01961; 36415; 59025; 85014; 85018; 85027; 86592; 86593; 86850; 86900; 86901; A9270-GY; J0690; J1885; J2270; J2300; J2405; J7120

== ENCOUNTER 2020-07-25 19:36 | Emergency (ER) | payer OTHER, BC ==
[2020-07-25] MEDS ORDERED: Acetaminophen 325 MG Tab PO ONE (19:55)
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
== END 2020-07-25 21:59 | disposition home or self-care (01) ==
LOC: MW.ED 19:36
DX: M25.532 Pain in left wrist (principal); Z88.0 Allergy status to penicillin; Z91.048 Other nonmedicinal substance allergy status; Z91.018 Allergy to other foods; V49.40XA Driver injured in collision with unspecified motor vehicles in traffic accident, initial encounter
CPT/HCPCS: 72070; 73130; 99284; A9270

== ENCOUNTER 2021-07-24 15:11 | Emergency (ER) | payer BC ==
[2021-07-24] MEDS ORDERED: LORazepam 2 MG/ML SDV IVPUSH ONE (15:22)
[2021-07-24] MEDS ORDERED: Sodium Chloride 0.9% 1,000 ML IV ONE (15:22)
[2021-07-24 16:10] LABS: BLOOD UREA NITROGEN,BUN 12 mg/dL (7.0-18.0); CARBON DIOXIDE,CO2 25.7 mmol/L (21.0-32.0); CHLORIDE,CL 103 mmol/L (98-107); GLUCOSE RANDOM 92 mg/dL (74-106); POTASSIUM,K 3.6 mmol/L (3.5-5.1); SODIUM,NA 139 mmol/L (136-145)
[2021-07-24] MEDS ORDERED: Ondansetron 4 MG/2 ML SDV IVPUSH STA (16:27)
[2021-07-24] MEDS ORDERED: Meclizine 25 MG Tab PO ONE (17:08)
== END 2021-07-24 18:47 | disposition home or self-care (01) ==
LOC: MW.ED 15:11
DX: R42 Dizziness and giddiness (principal); Z79.899 Other long term (current) drug therapy; Z88.0 Allergy status to penicillin; Z91.09 Other allergy status, other than to drugs and biological substances; Z91.048 Other nonmedicinal substance allergy status; Z20.822 Contact with and (suspected) exposure to COVID-19
CPT/HCPCS: 36415; 70450; 71045; 80053; 83735; 84443; 84484; 84703; 85025; 85379; 85610; 85730; 87635; 93005; 96361; 96374; 96375; 99285; A9270; J2060; J2405; J7030; U0002

== ENCOUNTER 2022-01-29 18:24 | Emergency (ER) | payer BC ==
[2022-01-29] MEDS ORDERED: Sodium Chloride 0.9% 2.5 ML Syringe FLUSH PRN (18:56)
[2022-01-29] MEDS ORDERED: Sodium Chloride 0.9% 10 ML Syringe FLUSH PRN (18:56)
[2022-01-29] MEDS ORDERED: Sodium Chloride 0.9% 1,000 ML IV ONE (18:57)
[2022-01-29 19:32] LABS: CARBON DIOXIDE,CO2 24.6 mmol/L (21.0-32.0); POTASSIUM,K 4.1 mmol/L (3.5-5.1)
[2022-01-29] MEDS ORDERED: Iopamidol 755 MG/ML 500 ML Multipack Bottle IVPUSH ONE (19:56)
== END 2022-01-29 21:00 | disposition home or self-care (01) ==
LOC: MW.ED 18:24
DX: K62.5 Hemorrhage of anus and rectum (principal); K64.9 Unspecified hemorrhoids; Z88.0 Allergy status to penicillin; Z91.09 Other allergy status, other than to drugs and biological substances; Z91.048 Other nonmedicinal substance allergy status
CPT/HCPCS: 36415; 74177; 80053; 83735; 85025; 85610; 96360; 99283; J3490; J7030; Q9967

== ENCOUNTER 2022-02-18 08:54 | Day surgery (SDC) | payer BC ==
[~2022-02-18 08:54] MED LIST: Lactated Ringers 1,000 ML IV SCH; Sodium Chloride 0.9% 10 ML Syringe FLUSH PRN; Sodium Chloride 0.9% 2.5 ML Syringe FLUSH PRN; Sodium Chloride 0.9% 20 ML SDV IV PRN
[2022-02-18] MEDS ORDERED: Propofol 200 MG/20 ML SDV ONE ×2 (10:40→12:17)
[2022-02-18] MEDS ORDERED: Lidocaine 2% 5 ML SDV ONE (12:17)
== END 2022-02-18 13:15 | disposition home or self-care (01) ==
LOC: MW.SDS 08:54
PROVIDERS: ATTEND Surgery
PROC: 0DBK8ZX Excision of Ascending Colon, Via Natural or Artificial Opening Endoscopic, Diagnostic (ICD-10-PCS; principal; 2022-02-18)
PROC: 0DBL8ZX Excision of Transverse Colon, Via Natural or Artificial Opening Endoscopic, Diagnostic (ICD-10-PCS; 2022-02-18)
PROC: 0DBN8ZX Excision of Sigmoid Colon, Via Natural or Artificial Opening Endoscopic, Diagnostic (ICD-10-PCS; 2022-02-18)
PROC: 0DBP8ZX Excision of Rectum, Via Natural or Artificial Opening Endoscopic, Diagnostic (ICD-10-PCS; 2022-02-18)
PROC: 0DBM8ZX Excision of Descending Colon, Via Natural or Artificial Opening Endoscopic, Diagnostic (ICD-10-PCS; 2022-02-18)
PROC: 0DBH8ZX Excision of Cecum, Via Natural or Artificial Opening Endoscopic, Diagnostic (ICD-10-PCS; 2022-02-18)
DX: K62.5 Hemorrhage of anus and rectum (principal); K52.9 Noninfective gastroenteritis and colitis, unspecified; G47.30 Sleep apnea, unspecified; E66.9 Obesity, unspecified; Z88.1 Allergy status to other antibiotic agents; Z91.048 Other nonmedicinal substance allergy status; Z87.891 Personal history of nicotine dependence; Z68.36 Body mass index [BMI] 36.0-36.9, adult
CPT/HCPCS: 45380; 81025; J2704; J7120; 00811